=== PATIENT | female | born 2000 | race Caucasian/White ===

== ENCOUNTER 2022-02-05 10:42 | Emergency (ER) | payer OTHER, SELFPAY ==
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
--- NOTE | 2022-02-05 11:03 | PC.NURSE ---
Meds communication assistant SANE activated at this time.
--- NOTE | 2022-02-05 11:08 | PC.NURSE ---
MYRA Renteria returned call and will be here shortly.
[2022-02-05 11:13] VITALS: BP 131/68; PULSE 80; RESP 18; TEMP 36.6; O2SAT 99
[2022-02-05] MEDS: ONDANSETRON HCL ODT 4 MG TABLET PO (15:20)
[2022-02-05] MEDS: levonorgestreL 1.5 MG TABLET PO (15:21)
[2022-02-05] MEDS: metroNIDAZOLE 250 MG TABLET 2000 MG PO (15:22)
[2022-02-05] MEDS: AZITHROMYCIN 250 MG TABLET 1000 MG PO (15:23)
[2022-02-05] MEDS: RALTEGRAVIR 400 MG TABLET PO (15:23)
[2022-02-05] MEDS: EMTRICITABINE-TENOFOVIR 100 MG-150 MG TABLET 1 TAB PO (15:23)
[2022-02-05] MEDS: cefTRIAXone 1 GM VIAL 0.5 GM IM (15:26)
== END 2022-02-05 16:21 | disposition home or self-care (01) ==
LOC: ANHED 15:37
PROVIDERS: Emergency Provider Nurse Practitioner Family
DX: T74.21XA Adult sexual abuse, confirmed, initial encounter (principal)
CPT/HCPCS: 81025; 96372; 99285; A9270; J0696

== ENCOUNTER 2022-04-03 21:02 | Emergency (ER) | payer OTHER, SELFPAY ==
[2022-04-03] VITALS (8 sets, daily range): BP systolic 105–136; BP diastolic 67–90; PULSE 68–105; RESP 16–20; TEMP 36.4; O2SAT 99–100
--- NOTE | 2022-04-03 22:01 | ED.HA ---
HPI - Headache General Chief Complaint: Headache Stated Complaint: Headache Time Seen by Provider: 04/03/22 21:20 Source: patient Mode of arrival: ambulatory Limitations: no limitations History of Present Illness HPI Narrative: This is a 21 year old female that presents to the ER for migraine headache present today. Associated with nausea and vomiting. The pain is achy in nature. She took Excedrin and Ibuprofen with little relief today. Denies fever, vision changes, numbness or weakness. Related Data Allergies Allergy/AdvReac Type Severity Reaction Status Date / Time Sulfa (Sulfonamide Allergy Hives Verified 04/03/22 21:08 Antibiotics) Review of Systems Review of Systems: CONSTITUTIONAL: Denies fever EYES: Denies visual changes GASTROINTESTINAL: Reports nausea, vomiting NEUROLOGIC: Reports headache. Denies numbness, or weakness. All systems reviewed & are unremarkable except as noted in HPI and below PMFSH Past Medical History Medical History (Updated 04/03/22 @ 23:55 by Tanika Menezes PA-C) History of migraine Social History Social History (Updated 04/03/22 @ 22:03 by Tanika Menezes PA-C) Smoking status: Current every day smoker Tobacco type: e-cigarettes/vaping Substance use: never Exam Narrative: GENERAL: Well-appearing, well-nourished, and in no acute distress. HEAD: Normocephalic, atraumatic. EYES: PERRLA and EOMI. ENT: Nares clear, no rhinorrhea or epistaxis. Mucous membranes moist. Oropharynx without tonsillar hypertrophy exudate or other lesions. Bilateral TMs [place] non-bulging NECK: Supple. No adenopathy or masses. CHEST: Clear to auscultation. No respiratory distress. No wheezes rales or rhonchi HEART: Regular rate and rhythm. No murmur heard. Normal peripheral pulses. EXTREMITIES: Normal range of motion. No edema. SKIN: Warm, dry, no rash. NEURO: No focal deficits. Alert and oriented x3. Cranial nerves II through XII grossly intact PSYCH: Normal mood and affect Course Vital Signs Vital signs: Vital Signs Temperature 97.5 F L 04/03/22 21:05 Pulse Rate 105 H 04/03/22 21:05 Respiratory Rate 20 04/03/22 21:05 Blood Pressure 136/79 04/03/22 21:05 Pulse Oximetry 100 04/03/22 21:05 Oxygen Delivery Room Air 04/03/22 21:05 Temperature 97.5 F L 04/03/22 21:05 Pulse Rate 68 04/03/22 23:19 Respiratory Rate 16 04/03/22 23:19 Blood Pressure 105/89 04/03/22 22:32 Pulse Oximetry 100 04/03/22 23:19 Oxygen Delivery Room Air 04/03/22 21:05 MDM - Headache MDM Narrative Medical decision making narrative: Patient presents to the ER for migraine headache present today. She is afebrile and nontoxic appearing. She is neurologically intact. Received migraine cocktail with relief. Instructed to follow up with her PCP. She was given warnings to return to the ER Critical Care Time Critical Care Time Critical Care Time: No Discharge Plan Discharge Clinical Impression: Headache Qualifiers: Headache type: unspecified Headache chronicity pattern: acute headache Intractability: not intractable Qualified Code(s): R51.9 - Headache, unspecified Patient Disposition: Home, Self-Care Condition: Stable Instructions: Acute Headache (ED) Additional Instructions: Return to the ER if you experience fever, stiff neck, sudden onset numbness or weakness, or any other symptoms that are concerning to you Rest. Remain well hydrated. Over the counter pain medication as needed Follow up with your primary care doctor Prescriptions: No Action ondansetron 4 mg tablet,disintegrating 4 mg PO Q8H Qty: 14 0RF Follow-up/Referrals: Alexander,MD Micheal [Primary Care Provider] - 3 Days
[2022-04-03] MEDS: SODIUM CHLORIDE 0.9% IV 1,000 ML 999 ML IV CONT (22:15)
[2022-04-03] MEDS: diphenhydrAMINE HCl INJ 50 MG/ML VIAL 25 MG IV PUSH (22:16)
[2022-04-03] MEDS: METOCLOPRAMIDE HCL INJ 10 MG/2 ML VIAL IV PUSH (22:16)
--- NOTE | 2022-04-03 23:19 | PC.NURSE ---
Assumed care of pt at this time. Pt alert and upright on stretcher, lights dimmed. States she feels better after medication administration
[2022-04-04 00:38] VITALS: BP 107/69; PULSE 72; RESP 16; O2SAT 99
== END 2022-04-04 00:40 | disposition home or self-care (01) ==
PROVIDERS: Emergency Provider Emergency Medicine; PCP Internal Medicine
DX: G43.909 Migraine, unspecified, not intractable, without status migrainosus (principal); F17.290 Nicotine dependence, other tobacco product, uncomplicated
CPT/HCPCS: 96361; 96365; 96375; 99284; J0131; J1200; J2765; J7030

== ENCOUNTER 2022-04-27 16:42 | Emergency (ER) | payer OTHER, SELFPAY ==
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
[2022-04-27 16:57] VITALS: BP 125/75; PULSE 98; RESP 18; TEMP 36.6; O2SAT 100
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
[2022-04-27] MEDS: ACETAMINOPHEN 500 MG TABLET 1000 MG PO (18:33)
== END 2022-04-27 20:14 | disposition home or self-care (01) ==
PROVIDERS: Emergency Provider Emergency Medicine; PCP Internal Medicine
DX: M54.50 Low back pain, unspecified (principal); M25.512 Pain in left shoulder; M25.562 Pain in left knee; V43.52XA Car driver injured in collision with other type car in traffic accident, initial encounter
CPT/HCPCS: 72100; 73030; 73564; 81025; 99284; A9270

== ENCOUNTER 2022-09-01 13:21 | Emergency (ER) | payer MEDICAID, SELFPAY ==
[2022-09-01 13:23] VITALS: BP 160/41; PULSE 121; RESP 14; TEMP 36.2; O2SAT 100
--- NOTE | 2022-09-01 14:05 | ED.GENADULT ---
HPI - General Adult General Chief complaint: Unspecified Stated complaint: dental pain Time Seen by Provider: 09/01/22 13:23 History of Present Illness HPI narrative: Patient is a 21-year-old female presenting with multiple complaints. Patient states that for the last couple of years she has been neglecting herself and not focusing on her health. 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 Patient states that ever since having her daughter she has had decreased appetite and no interest in food due to her body dysmorphia. Patient states that she was started on an SSRI sometime earlier last year but she stopped taking it after a couple of weeks because it did not seem to work. Patient states that yesterday she was standing when she began seeing spots and started to feel lightheaded. States that she was also hearing ringing in her ears and having pounding in her head. States that it resolved after 3 minutes. She did not have chest pain, palpitations, shortness of breath. No numbness or weakness, speech changes. No fevers, cough, vomiting, diarrhea, abdominal pain Related Data Allergies Allergy/AdvReac Type Severity Reaction Status Date / Time Sulfa (Sulfonamide Allergy Hives Verified 09/01/22 13:29 Antibiotics) Review of Systems Review of Systems: All systems reviewed & are unremarkable except as noted in HPI and below PMFSH Past Medical History Medical History History of migraine Social History Social History Smoking status: Current every day smoker Tobacco type: e-cigarettes/vaping Substance use: never Exam Narrative: GENERAL: Well-appearing, well-nourished, and in no acute distress. HEAD: Normocephalic, atraumatic. EYES: PERRLA and EOMI. ENT: Nares clear, no rhinorrhea or epistaxis. Mucous membranes slightly dry NECK: Supple. CHEST: Clear to auscultation. No respiratory distress. HEART: Regular rate and rhythm. No murmur heard. Normal peripheral pulses. ABDOMEN: Soft, nontender, nondistended, normal active bowel sounds. EXTREMITIES: Normal range of motion. No edema. SKIN: Warm, dry, no rash. NEURO: No focal deficits. Alert and oriented x3. PSYCH: Tearful, anxious Course Vital Signs Vital signs: Vital Signs Temperature 97.1 F L 09/01/22 13:23 Pulse Rate 121 H 09/01/22 13:23 Respiratory Rate 14 09/01/22 13:23 Blood Pressure 160/41 H 09/01/22 13:23 Pulse Oximetry 100 09/01/22 13:23 Oxygen Delivery Room Air 09/01/22 13:23 Temperature 97.1 F L 09/01/22 13:23 Pulse Rate 121 H 09/01/22 13:23 Respiratory Rate 14 09/01/22 13:23 Blood Pressure 160/41 H 09/01/22 13:23 Pulse Oximetry 100 09/01/22 13:23 Oxygen Delivery Room Air 09/01/22 13:23 Medical Decision Making MDM Narrative Medical decision making narrative: Patient is a 21-year-old female presenting with multiple complaints. Blood work unremarkable. Patient was seen by crisis team to be provided with psychiatric resources. Patient then eloped prior to my final evaluation. Differential Diagnosis Differential Diagnosis: dehydration, syncope, depression, anxiety Vital Signs Vital Signs: Vital Signs Temperature 97.1 F L 09/01/22 13:23 Pulse Rate 121 H 09/01/22 13:23 Respiratory Rate 14 09/01/22 13:23 Blood Pressure 160/41 H 09/01/22 13:23 Pulse Oximetry 100 09/01/22 13:23 Oxygen Delivery Room Air 09/01/22 13:23 Temperature 97.1 F L 09/01/22 13:23 Pulse Rate 121 H 09/01/22 13:23 Respiratory Rate 14 09/01/22 13:23 Blood Pressure 160/41 H 09/01/22 13:23 Pulse Oximetry 100 09/01/22 13:23 Oxygen Delivery Room Air 09/01/22 13:23 Lab Data 09/01/22 14:20 09/01/22 14:20 Labs: Lab Results 09/01/22 09/01/22 Range/Units 14:20 14:20 WBC 8.5 (4.5-10.0)
[2022-09-01] MEDS: SODIUM CHLORIDE 0.9% IV 1,000 ML 999 ML IV CONT (14:20)
[2022-09-01 14:28] LABS: Basophils Percent Auto 0.4 % (0.2-1.2); Eosinophils Percent Auto 0.5 % (0-4.4); Hematocrit 41.5 % (37.0-47.0); Hemoglobin 13.7 g/dL (12.0-15.0); Immature Granulocyte Absolute 0.02 K/mm3 (0.00-0.031); Immature Granulocyte Percent A 0.2 % (0-0.5); Lymphocytes Absolute Auto 2.21 K/mm3 (0.9-3.2); Lymphocytes Percent Auto 26.1 % (18.3-44.2); Mean Corpuscular Hemoglobin 26.1 pg (26-34); Mean Corpuscular Volume 79.2 fl (80-100); Mean Platelet Volume 10.2 fl (7.4-10.4); Monocytes Absolute Auto 0.5 K/mm3 (0.1-0.6); Neutrophils Absolute Auto 5.7 K/mm3 (1.3-6.7); Neutrophils Percent Auto 66.8 % (45.5-73.1); Platelet Count Result 361 k/mm3 (150-375); Red Blood Count 5.24 M/mm3 (4.2-5.4); Red Cell Distribution Width 14.3 % (11.5-14.5); White Blood Count 8.5 K/mm3 (4.5-10.0)
[2022-09-01 14:41] LABS: Alanine Aminotransferase 21 U/L (6-35); Albumin Level 4.8 g/dL (3.5-5.1); Alkaline Phosphatase 66 U/L (38-126); Anion Gap 10 mmol/L (8-16); Aspartate Amino Transferase 23 U/L (14-36); Bilirubin,Total 0.6 mg/dL (0.2-1.3); Blood Urea Nitrogen 13 mg/dL (7-17); Calcium 9.2 mg/dL (8.4-10.2); Carbon Dioxide 27 mmol/L (22-30); Chloride 105 mmol/L (98-107); Estimated CRCL calculation 113 ml/min; Estimated Glomerular Filt Rate > 60; Glucose 100 mg/dL (65-110); Potassium 3.8 mmol/L (3.4-5.0); Sodium 142 mmol/L (137-145)
--- NOTE | 2022-09-01 16:34 | PC.NURSE ---
crisis here to evaluate pt at this time
== END 2022-09-01 16:52 | disposition home or self-care (01) ==
PROVIDERS: Emergency Provider Emergency Medicine; PCP Internal Medicine
DX: R42 Dizziness and giddiness (principal); F32.A Depression, unspecified; F41.9 Anxiety disorder, unspecified; F17.290 Nicotine dependence, other tobacco product, uncomplicated
CPT/HCPCS: 36415; 80053; 85025; 96360; 96361; 99283; J7030